=== PATIENT | male | born 1930 | race Caucasian/White ===

== ENCOUNTER 2016-07-21 04:24 | Inpatient (IN) | payer OTHER ==
[2016-07-21] MEDS ORDERED: OCTREOTIDE ACETATE 50 MCG/1 ML - 1 ML VIAL IVPUSH ONE (04:26)
[2016-07-21] MEDS ORDERED: PANTOPRAZOLE SODIUM 40 MG in SODIUM CHLORIDE 100 ML IVPB ONE ×2 (04:27→04:30)
[2016-07-21] MEDS ORDERED: OCTREOTIDE ACETATE 1,200 MCG in DEXTROSE 5%-WATER - 488 ML IVPB SCH (04:30)
[2016-07-21] MEDS ORDERED: TRANEXAMIC ACID 1000 MG/10 ML VIAL IVPUSH ONE (04:32)
[2016-07-21] MEDS ORDERED: PANTOPRAZOLE SODIUM 40 MG VIAL ONE (04:34)
[2016-07-21] MEDS ORDERED: PANTOPRAZOLE SODIUM 100 ML IVPB ONE (04:34)
[2016-07-21] MEDS ORDERED: OCTREOTIDE ACETATE 100 MCG/1 ML ONE (04:36)
--- NOTE | 2016-07-21 04:40 | PDOC ---
History of Present Illness <Josep Lucio - Last Filed: 07/21/16 06:25> - General History Source: Patient Exam Limitations: No Limitations - History of Present Illness Initial Comments: 07/21/16 05:25 The patient is an 86-year-old male, with a significant past medical history of colon cancer and is currently being treated for leukemia, who presents to ED with GI bleed today. Pt was recently discharged from [facility] where he was given five units PRBC. Daughter was called by pts because pt was noted have bright blood per rectum and coffee ground emesis by mouth. Pt was also noted to be very lethargic. <Yokasta Beth - Last Filed: 07/21/16 06:41> - General Stated Complaint: BLEEDING Time Seen by Provider: 07/21/16 04:26 Past History <Josep Lucio - Last Filed: 07/21/16 06:25> <Yokasta Beth - Last Filed: 07/21/16 06:41> - Past Medical History Allergies/Adverse Reactions: Allergies Allergy/AdvReac Type Severity Reaction Status Date / Time No Known Allergies Allergy Verified 07/21/16 04:48 Review of Systems - Review of Systems Able to Perform ROS?: Yes Comments:: 07/21/16 05:31 GENERAL/CONSTITUTIONAL: No fever or chills. (+)weakness HEAD, EYES, EARS, NOSE AND THROAT: No change in vision. No ear pain or discharge. No sore throat. CARDIOVASCULAR: No chest pain or shortness of breath. RESPIRATORY: No cough, wheezing, or hemoptysis. GASTROINTESTINAL: No nausea, diarrhea or constipation. (+)Vomiting coffee grounds GENITOURINARY: No dysuria, frequency, or change in urination. (+)Bright red blood per rectum MUSCULOSKELETAL: No joint or muscle swelling or pain. No neck or back pain. SKIN: No rash NEUROLOGIC: No headache, vertigo, loss of consciousness, or change in strength/ sensation. ENDOCRINE: No increased thirst. No abnormal weight change. HEMATOLOGIC/LYMPHATIC: No anemia, easy bleeding, or history of blood clots. ALLERGIC/IMMUNOLOGIC: No hives or skin allergy. <Yokasta Beth - Last Filed: 07/21/16 06:41> *Physical Exam - Vital Signs Last Vital Signs Temp Pulse Resp BP Pulse Ox 98.6 F 87 20 107/55 96 07/21/16 05:14 07/21/16 05:14 07/21/16 05:14 07/21/16 05:14 07/21/16 05:14 - Physical Exam Comments: 07/21/16 05:46 GENERAL: pale and cachetic HEAD: No signs of trauma EYES: PERRLA, EOMI, sclera anicteric, conjunctiva clear ENT: Auricles normal inspection, hearing grossly normal, nares patent. (+) Coffee ground emesis was noted at mouth. exudates. Moist mucosa. NECK: Normal ROM, supple, no lymphadenopathy, JVD, or masses LUNGS: Breath sounds equal, clear to auscultation bilaterally. No wheezes, and no crackles HEART: Regular rate and rhythm, normal S1 and S2, no murmurs, rubs or gallops ABDOMEN: Soft. No guarding, no rebound. No masses. (+)Linear right upper quadrant incision was noted, well healed. Severe amount of melanonic stool and dark red blood noted. EXTREMITIES: Normal range of motion, no edema. No clubbing or cyanosis. No cords, erythema, or tenderness NEUROLOGICAL: Cranial nerves II through XII grossly intact. SKIN: Warm, Dry, normal turgor, no rashes or lesions noted <Yokasta Beth - Last Filed: 07/21/16 06:41> ED Treatment Course - LABORATORY CBC & Chemistry Diagram: 07/21/16 04:27 07/21/16 04:27 <Josep Lucio - Last Filed: 07/21/16 06:25> - LABORATORY CBC & Chemistry Diagram: 07/21/16 04:27 07/21/16 04:27 - ADDITIONAL ORDERS Additional order review: Laboratory Results 07/21/16 07/21/16 07/21/16 04:29 04:27 04:27 Sodium 140 Potassium 4.3 Chloride 99 Carbon Dioxide 18 L Anion Gap 23 H BUN 77 H Creatinine 3.3 H Creat Clearance w eGFR 17.95 Random Glucose 304 H* Lactic Acid 15.947 H* Calcium 7.1 L Phosphorus 5.4 H Magnesium 2.3 Total Bilirubin 0.8 AST 32 ALT 16 Alkaline Phosphatase 212 H Creatine Kinase Troponin I Total Protein 3.5 L Albumin 1.6 L Lipase 267 Blood Type A POSITIVE Crossmatch See Detail 07/21/16 04:27 Sodium Potassium Chloride Carbon Dioxide Anion Gap BUN Creatinine Creat Clearance w eGFR Random Glucose Lactic Acid Calcium Phosphorus Magnesium Total Bilirubin AST ALT Alkaline Phosphatase Creatine Kinase 30 L Troponin I 0.03 Total Protein Albumin Lipase Blood Type Crossmatch 07/21/16 04:27 RBC 1.55 L MCV 94.6 MCHC 28.6 L RDW 16.6 H MPV 9.7 Neutrophils % Y Lymphocytes % Y - Medications Given in the ED: ED Medications Discontinued Medications Generic Name Dose Route Start Last Admin Trade Name Aury PRN Reason Stop Dose Admin Desmopressin Acetate 100 mcg 07/21/16 04:58 07/21/16 05:16 Ddavp Injection - IVPB 07/21/16 04:59 Not Given ONCE ONE Desmopressin Acetate 21 mcg 07/21/16 05:17 07/21/16 05:18 Ddavp Injection - IVPB 07/21/16 05:18 21 mcg NOW ONE Administration Pantoprazole Sodium 40 mg/ 100 mls @ 200 mls/hr 07/21/16 04:27 07/21/16 04:45 Sodium Chloride IVPB 07/21/16 04:56 200 mls/hr ONCE ONE Administration Pantoprazole Sodium 40 mg/ 100 mls @ 200 mls/hr 07/21/16 04:30 07/21/16 04:30 Sodium Chloride IVPB 07/21/16 04:59 200 mls/hr NOW ONE Administration Octreotide Acetate 50 mcg 07/21/16 04:26 07/21/16 04:46 Sandostatin - IVPUSH 07/21/16 04:27 50 mcg ONCE ONE Administration Tranexamic Acid 700 mg 07/21/16 04:32 07/21/16 05:00 Tranexamic Acid - IVPUSH 07/21/16 04:33 700 mg ONCE ONE Administration <Yokasta Beth - Last Filed: 07/21/16 06:41> Medical Decision Making - Critical Care Time Total Critical Care Time (minutes): 60 Critical Care Statement: The care of this patient involved high complexity decision making to prevent further life threatening deterioration of the patient 's condition and/or to evalute & treat vital organ system(s) failure or risk of failure. - Medical Decision Making 07/21/16 04:59 This is an 86yo m with acute upper and lower GI bleed with underlying CML and recently discharged from [facility] where he was given five units PRBC. He has no tachycardia who has hypotension. He looks very pale and weak. The daughter , whom is a physician, indicates the patient is to be DNR/DNI. I am very concerned regarding upper GI bleed but also potentially lower GI bleed given the daughter informing she noted bright red blood per rectum, and a significant volume. He has been given octreotide, desmopresson, protonix, transfuse 3U PRBC 's and 2-3U Platelets as well; I have endorsed the patient to ICU SECURITIES ANALYST Madi and have discussed the case with GI avionics repair technician who agrees with plan at this time and will evaluate the patient once the platelets have increased as he indicates not possible to scope with the thrombocytopenia noted. I have kept the daughter involved in the decision making process. He remains hemodynamically stable at this time. Analgesia prn with low dose morphine and antiemetics with ondansetron. 07/21/16 06:25 Pt required CVC and one TLC was placed in the RIGHT femoral; the patient is given antibiotics as well; endorsed to Dr. Brown for further management. Very poor prognosis; communicated to the daughter. Total Critical Care Time: 60 minutes <Josep Lucio - Last Filed: 07/21/16 06:25> *DC/Admit/Observation/Transfer - Attestations Physician Attestion: 07/21/16 06:28 I, Dr. Josep Lucio MD, attest that this document has been prepared under my direction and personally reviewed by me in its entirety. I further attest, that it accurately reflects all work, treatment, procedures and medical decision -making performed by me. <Josep Lucio - Last Filed: 07/21/16 06:25> - Attestations Scribe Attestion: 07/21/16 05:46 Documentation prepared by Yokasta Beth, acting as medical records supervisor for Josep Lucio MD. <Yokasta Beth - Last Filed: 07/21/16 06:41> Diagnosis at time of Disposition: Thrombocytopenia GI bleeding Qualifiers: GI bleed type/associated pathology: unspecified gastrointestinal hemorrhage type Qualified Code(s): K92.2 - Gastrointestinal hemorrhage, unspecified Hypotension Qualifiers: Hypotension type: other hypotension type Qualified Code(s): I95.89 - Other hypotension Anemia Qualifiers: Folate deficiency anemia type: unspecified folate deficiency - Referrals
[2016-07-21 04:44] LABS: MCHC 28.6 g/dl (32.0-35.9); MEAN CELL VOLUME 94.6 fl (80-96); MEAN PLT VOLUME 9.7 fl (7.5-11.1); RDW 16.6 % (11.9-15.9)
[2016-07-21 04:48] LABS: WHITE BLOOD COUNT 102.5 K/mm3 (4.0-10.0)
[2016-07-21 04:49] LABS: PLATELET COUNT 34 K/MM3 (134-434)
[2016-07-21] MEDS ORDERED: DESMOPRESSIN ACETATE 4 MCG/ML AMP IVPB ONE ×2 (04:58→05:17)
[2016-07-21] MEDS ORDERED: morphine CARPU-JECT 4 MG/1 ML DISP.SYRIN IVPUSH ONE ×3 (05:05→23:56)
[2016-07-21] MEDS ORDERED: ONDANSETRON 4 MG/2 ML VIAL IVPUSH ONE (05:05)
[2016-07-21 05:11] LABS: ALBUMIN 1.6 g/dl (3.4-5.0); BILIRUBIN,TOTAL 0.8 mg/dL (0.2-1.0); CALCIUM 7.1 mg/dL (8.5-10.1); CREATININE 3.3 mg/dL (0.7-1.3); MAGNESIUM 2.3 mg/dL (1.8-2.4); PHOSPHOROUS 5.4 mg/dL (2.5-4.9); TOT PROT 3.5 g/dl (6.4-8.2)
[2016-07-21 05:22] LABS: TROPONIN I 0.03 ng/ml (0.00-0.05)
[2016-07-21 06:08] LABS: INR 1.82 (0.82-1.09); PROTHROMBIN TIME (PATIENT) 20.3 SEC (9.98-11.88)
--- NOTE | 2016-07-21 07:25 | PN ---
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 PAtient's daughter at bedside and is the surrogate. patient made DNR. Case d/w ICU wire threader and fentanyl started for pain medication. will continue orders from ED, IVF, PRBCs, FFP and Platelets. Endorsed to day team for continued care. Visit type - Emergency Visit Emergency Visit: Yes ED Registration Date: 07/21/16 Care time: The patient presented to the Emergency Department on the above date and was hospitalized for further evaluation of their emergent condition. - New Patient This patient is new to me today: No - Critical Care Critical Care patient: Yes Total Critical Care Time (in minutes): 15
[2016-07-21] MEDS ORDERED: SODIUM CHLORIDE 1,000 ML IV SCH (07:30)
[2016-07-21] MEDS ORDERED: CALCIUM GLUCONATE 10% - 1,000 MG/10 ML VIAL ONE (07:34)
[2016-07-21] MEDS ORDERED: SODIUM CHLORIDE 500 ML IV STA (07:35)
[2016-07-21] MEDS ORDERED: morphine CARPU-JECT 2 MG/1 ML DISP.SYRIN IVPUSH PRN (07:35)
[2016-07-21 07:42] VITALS: BMI 26.4
--- NOTE | 2016-07-21 08:00 | PN ---
Teaching Attending Note Name of Resident: Pao Manning ATTENDING PHYSICIAN STATEMENT I saw and evaluated the patient. I reviewed the resident's note and discussed the case with the resident. I agree with the resident's findings and plan as documented. SUBJECTIVE: Unable to take hx from t as he is hard of hearing and sick. 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 He was admitted with worsening anemia to OSH and discharged yesterday. he took his nifedipine yesterday, his lasix and metolazone were increased at dc . yesterday he had upper and Lower GI bleed. he was recently treated for PNA . in ER he was given RBC, plt and FFPs. he is now in ICU OBJECTIVE: Mild distress, pale , looks ill. dry MM , dry blood on lips. round pupils , reactive to light. no jVD Lung s: CTAB CV: RRR,no MRG Abd :soft, slightly distended , TTP in all guadrants, no guarding . Ext : 1+ pitting edema on LE . 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 pt is now hemodinamically stable. - start PPI gtt - currently on octriotide gtt . - give 500 cc of NS bolus , start NS then at 125 - transfuse blood - give one dose of meropenem now . - daughter declined CT scan of abd - daughter decliend central line - for pain , fentanyl ordered due to his renal failure 2- Hypotension : will perform fluid resuscitation . if needed can start dopamine peripherally . daughter decliend central line 3- CMML , with likely conversion to AML . was scheduled to start chemo tomorrow - transfuse blood and plt 4- Goals of care . d/w daughter , who is a doctor , in details . she understands he rfather is very sick and might not make it . she does not want heroic measures , and no CT scan , she wasnts him comfortable , treated with pain meds and flluid and blood resuscitation . She understands that pain meds can drop blood pressure . wants mom to get here , before she makes further decisions about him. she even does not want repeat blood work DNr/DNI will have another family meeting when mom comes here
[2016-07-21] MEDS ORDERED: ONDANSETRON 4 MG/2 ML VIAL ONE (08:27)
[2016-07-21] MEDS ORDERED: LORAZEPAM CARPU-JECT 2 MG/ML DISP.SYRIN IVPUSH ONE ×2 (08:30→22:04)
[2016-07-21 08:33] LABS: METAMYELOCYTE 9 % (0-2)
[2016-07-21 08:34] LABS: SMUDGE CELLS FEW
[2016-07-21 08:35] LABS: ANISOCYTOSIS 1+; HYPOCHROMIA 1+; PLATELET COMMENT2 NO CLOTTING DETECTED; PLATELET COMMENT3 FEW GIANT PLTS; PLATELET ESTIMATE MARKEDLY DECREASED (NORMAL); POLYCHROMASIA 1+
--- NOTE | 2016-07-21 08:46 | HP ---
CHIEF COMPLAINT: rectal bleed HISTORY OF PRESENT ILLNESS: history obtained from daughter who is power of finance attorney This is an 86 yo M with PMH of CMML, R inguinal hernia and colon cancer s/p recection 2001, who was brought to ED by family due to 2 episodes of upper and lower GI bleed. He was recently at [facility] 07/17 07/19 due to PNA. Aty that time he was diagnosed with large R inguinal hernia, not treated. He had 5 recent transfusions. Per daughter, he has been bruising easily for the past 2 mo. This morning he had large episodes of melena and diffuse abdominal pain. This has not happened before. He has no hx of CHF or VA. On admission he was hypotensive , pancytopenic and severely anemic. He was transfused 1 u p RBCs. Patient was admitted to ICU and given fentanyl for abdominal pain. R groin central line placed in ED infiltrated but wanted conservative measures/comfort care and declined new line. They agree to BP support with IVF and to transfusion of blood products but decline heroic measures (no central line, no surgery, they signed DNR DNI) Discussed with daughter and . They may decide to place patient on morphine drip once another daughter arrives at hospital. After 3 U pRBC and IVF, patient aao to time, place, self. ER course was notable for: (1)labs (2)R inguinal central line (3)transfusion Recent Travel: denies PAST MEDICAL HISTORY: as above PAST SURGICAL HISTORY: as above Social History: lives at home Smoking: denies Alcohol:denies Drugs: denies Family History: HTN, HLD Allergies No Known Allergies Allergy (Verified 07/21/16 04:48) HOME MEDICATIONS: REVIEW OF SYSTEMS CONSTITUTIONAL: Absent: fever, chills HEENT: Absent: rhinorrhea, nasal congestion, throat pain CARDIOVASCULAR: Absent: chest pain, syncope, palpitations RESPIRATORY: Absent: cough GASTROINTESTINAL: Absent: vomiting, diarrhea GENITOURINARY: Absent: dysuria HEMATOLOGIC/IMMUNOLOGIC: Absent: frequent infections NEUROLOGIC: Absent: headache, focal weakness or paresthesias PSYCHIATRIC: Absent: hallucinations. PHYSICAL EXAMINATION Vital Signs - 24 hr 07/21/16 07/21/16 07/21/16 07:30 07:42 08:35 Temperature 96.6 F L Pulse Rate 90 79 Respiratory 20 Rate Blood Pressure 94/48 O2 Sat by Pulse 94 L 99 Oximetry (%) 03/25/17 08:44 Temperature Pulse Rate Respiratory 81 H Rate Blood Pressure 91/44 O2 Sat by Pulse Oximetry (%) GENERAL: Awake, alert, and oriented, in moderate distress HEAD: Normal with no signs of trauma. Pale EYES: Pupils equal, round and reactive to light, extraocular movements intact, sclera anicteric, pale conjunctiva EARS, NOSE, THROAT: dry mucous membranes. NECK: supple LUNGS: Breath sounds equal, clear to auscultation bilaterally. HEART: Regular rate and rhythm ABDOMEN: soft, diffusely tender, no mass, absent bowel sounds MUSCULOSKELETAL: No CVA tenderness. UPPER EXTREMITIES: cool pale 1+ pulses, No peripheral edema. LOWER EXTREMITIES: cool pale 1+ pulses, No peripheral edema. NEUROLOGICAL: Cranial nerves II-XII grossly intact. PSYCHIATRIC: in distress, mildly lethargic SKIN: cool, dry, pale ASSESSMENT/PLAN: This is an 86 yo M with PMH of CMML, R inguinal hernia and colon cancer s/p recection 2001, who was brought to ED by family due to 2 episodes of upper and lower GI bleed. 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 -possible dopamine drip if MAP drops further before second sister arrives. End of life care -DNR DNI -comfort measures -awaiting another family member to arrive -consider morphine drip once everyone is present -recording clerk care consult -discussed with patient daughter and mother FEN NS @ 100, boluses replete lytes npo Dispo ICU Problem List - Problem (1) Anemia Code(s): D64.9 - ANEMIA, UNSPECIFIED Qualifiers: Folate deficiency anemia type: unspecified folate deficiency (2) GI bleeding Code(s): K92.2 - GASTROINTESTINAL HEMORRHAGE, UNSPECIFIED Qualifiers: GI bleed type/associated pathology: unspecified gastrointestinal hemorrhage type Qualified Code(s): K92.2 - Gastrointestinal hemorrhage, unspecified (3) Hypotension Code(s): I95.9 - HYPOTENSION, UNSPECIFIED Qualifiers: Hypotension type: other hypotension type Qualified Code(s): I95.89 - Other hypotension (4) Thrombocytopenia Code(s): D69.6 - THROMBOCYTOPENIA, UNSPECIFIED (5) Ischemia, bowel Code(s): K55.9 - VASCULAR DISORDER OF INTESTINE, UNSPECIFIED Visit type - Emergency Visit Emergency Visit: Yes ED Registration Date: 07/21/16 Care time: The patient presented to the Emergency Department on the above date and was hospitalized for further evaluation of their emergent condition. - New Patient This patient is new to me today: Yes Date on this admission: 07/21/16 - Critical Care Critical Care patient: Yes Total Critical Care Time (in minutes): 45 Critical Care Statement: The care of this patient involved high complexity decision making to prevent further life threatening deterioration of the patient 's condition and/or to evalute & treat vital organ system(s) failure or risk of failure.
[2016-07-21] MEDS: PANTOPRAZOLE SODIUM 80 MG in SODIUM CHLORIDE 100 ML IVPB SCH ×2 (08:59→19:00)
[2016-07-21] MEDS ORDERED: MUPIROCIN 2% TOPICAL OINTMENT FOR DECOLONIZATION NS SCH (10:00)
[2016-07-21] MEDS ORDERED: CEFTRIAXONE 50 ML IVPB SCH (10:30)
[2016-07-21] MEDS ORDERED: MEROPENEM 500 MG VIAL (RESTRICTED TO ID) IVPB ONE (10:37)
--- NOTE | 2016-07-21 10:57 | CONSULT ---
Consult - text type - Consultation Consultation Note: PULM/CCM Pt seen and examined in ICU CC: hematemesis, melena, weakness HPI: 86 y/o man with long hx CML, poorly responsive to chemotherapy recently D/ c from [facility] after GIB. Required multiple transfusion prior to d/c. Yesterday developed hematemesis x 2 and multiple episodes of maroon blood. Very weak and lethagic at home prompting ER visit. In ED pt normotensive, afebrile, with large volume melena. Hgb 4, Lactate 15, Cr 3, wbc 100K. Urgent tlc placed in R femoral, attempted transfusion--infiltrated, no blood return. Started on Protonix and Octreotide gtt. Transfusions ordered and pt brought to ICU. GOC discussion had, pt made DNR/DNI by daughter (physician). Fentanyl given for abd pain. Family does not want aggressive measure, TLC not replaced. Active Medications Chlorhexidine Gluconate (Hibiclens For Decolonization -) 1 applic TP HS [facility] Fentanyl (Sublimaze Injection -) 50 mcg IVPUSH Q1H PRN PRN Reason: PAIN Stop: 07/22/16 07:02 Last Admin: 07/21/16 09:00 Dose: 50 mcg Octreotide Acetate 1,200 mcg/ (Dextrose) 500 mls @ 20.83 mls/hr IVPB ASDIR YAIMA PRN Reason: 50 MCG/HR Last Admin: 07/21/16 06:16 Dose: 20.83 mls/hr Pantoprazole Sodium 80 mg/ (Sodium Chloride) 100 mls @ 10 mls/hr IVPB Q10H YAIMA PRN Reason: 8 MG/HR Last Admin: 07/21/16 08:59 Dose: Not Given Sodium Chloride (Normal Saline -) 1,000 mls @ 125 mls/hr IV ASDIR YAIMA Ceftriaxone Sodium (Rocephin 1gm Ivpb (Pre-Docked)) 50 mls @ 100 mls/hr IVPB DAILY YAIMA Meropenem (Merrem (Restricted To Id) -) 500 mg IVPB ONCE ONE Stop: 07/21/16 10:38 Morphine Sulfate (Morphine Injection -) 1 mg IVPUSH Q3H PRN PRN Reason: PAIN Mupirocin (Bactroban Ointment (For Decolonization) -) 1 applic NS BID [facility] Stop: 07/26/16 09:59 PMH: HTN, CML PSH: unk Family Hx: Non contrib Social: live with daughter, no toxic habits CBC, BMP 07/21/16 04:27 07/21/16 04:27 Vital Signs Temp 96.6 F L 07/21/16 07:30 Pulse 79 07/21/16 08:35 Resp 81 H 07/21/16 08:44 BP 91/44 07/21/16 08:44 Pulse Ox 99 07/21/16 08:35 Intake & Output 07/20/16 07/20/16 07/21/16 11:59 23:59 11:59 Weight 74.446 kg Other: Height 5 ft 6 in Body Mass Index (BMI) 26.4 Weight Measurement [facility] Measurement Method Est/Stated by Patient PE: HEENT; PERRL, EOMI PULM: clear CV: tachy, regular, no m/r/g ABD: diffusely tender, mjldly distended, hypoactive BS EXT; cool, weak peripheral pulses Neuro: intact, follows simple commands EKG: SR, ST depressions in A/ 86 yo with advanced CML, possible converted to AML with recurrent GIB now with same, severe anemia and lactic acidosis. Family desires non-aggressive care and focus on comfort -cont volume resusitation with blood products -serial CBC -ceftriaxone for possible translocation from ischemic bowel -cont nexium gtt, unlikely varices, possible ischemic bowels so would d/c octreotide -fentanyl for comfort, gtt if moribund -ice chips if desires for comfort -monitor in ICU Madi Ramon ACNP [id number] 35min CCT
[2016-07-21] MEDS ORDERED: MEROPENEM 500 MG in DEXTROSE 5%-WATER - 100 ML IVPB ONE (11:00)
--- NOTE | 2016-07-21 11:49 | CON.GI ---
Consult Consult Specialty:: gastroenterology Referred by:: hospitalist Reason for Consultation:: gi bleeding - History of Present Illness History of Present Illness: Patient seen in the ICU. The information was obtained form her daughter. 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 This morning he had large episodes of melena and diffuse abdominal pain. In the ER, he was noted to be hypotensive, pancytopenic and had severe anemia. He was given blood products emergently. - History Source History Provided By: Family Member - Alcohol/Substance Use Hx Alcohol Use: No - Smoking History Smoking history: Never smoked Have you smoked in the past 12 months: No Home Medications - Allergies Allergies/Adverse Reactions: Allergies Allergy/AdvReac Type Severity Reaction Status Date / Time No Known Allergies Allergy Verified 07/21/16 04:48 Review of Systems Unable to obtain ROS, reason: clinical condition Physical Exam-GI Vital Signs: Vital Signs Temperature 96.6 F L 07/21/16 07:30 Pulse Rate 79 07/21/16 08:35 Respiratory Rate 81 H 07/21/16 08:44 Blood Pressure 91/44 07/21/16 08:44 O2 Sat by Pulse Oximetry (%) 99 07/21/16 08:35 Constitutional: Yes: Well Nourished Eyes: Yes: Conjunctiva Clear HENT: Yes: Atraumatic Neck: Yes: Supple Cardiovascular: Yes: Regular Rate and Rhythm Respiratory: Yes: CTA Bilaterally Gastrointestinal Inspection: No: Distention ...Palpate: Yes: Soft, Tenderness (--diffuse). No: Firm/Rigid, Guarding, Hepatomegaly, Mass, Splenomegaly Labs: INR, PTT INR 1.82 (0.82-1.09) H 07/21/16 04:27 CBC,CMP WBC 102.5 K/mm3 (4.0-10.0) H* 07/21/16 04:27 RBC 1.55 M/mm3 (4.00-5.60) L 07/21/16 04:27 Hgb 4.2 GM/dL (11.7-16.9) L* 07/21/16 04:27 Hct 14.7 % (35.4-49) L 07/21/16 04:27 MCV 94.6 fl (80-96) 07/21/16 04:27 MCHC 28.6 g/dl (32.0-35.9) L 07/21/16 04:27 RDW 16.6 % (11.9-15.9) H 07/21/16 04:27 Plt Count 34 K/MM3 (134-434) L* 07/21/16 04:27 MPV 9.7 fl (7.5-11.1) 07/21/16 04:27 Neutrophils % 65.0 % (42.8-82.8) 07/21/16 04:27 Lymphocytes % 13.0 % (8-40) 07/21/16 04:27 Monocytes % 5.0 % (3.8-10.2) 07/21/16 04:27 Eosinophils % 2.0 % (0-4.5) 07/21/16 04:27 Band Neutrophils 9.0 % (0-10) 07/21/16 04:27 Metamyelocytes 9 % (0-2) H 07/21/16 04:27 Myelocytes 2 % (0-2) 07/21/16 04:27 Promyelocytes 3 (0-1) H 07/21/16 04:27 Smudge Cells Few 07/21/16 04:27 Other Cell Type 1 07/21/16 04:27 Platelet Estimate Markedly decreased (NORMAL) 07/21/16 04:27 Platelet Comment No clumping noted 07/21/16 04:27 Platelet Comment No clotting detected 07/21/16 04:27 Polychromasia 1+ 07/21/16 04:27 Hypochromic-Microcytic 1+ 07/21/16 04:27 Anisocytosis 1+ 07/21/16 04:27 Sodium 140 mmol/L (136-145) 07/21/16 04:27 Potassium 4.3 mmol/L (3.5-5.1) 07/21/16 04:27 Chloride 99 mmol/L (98-107) 07/21/16 04:27 Carbon Dioxide 18 mmol/L (21-32) L 07/21/16 04:27 Anion Gap 23 (8-16) H 07/21/16 04:27 BUN 77 mg/dL (7-18) H 07/21/16 04:27 Creatinine 3.3 mg/dL (0.7-1.3) H 07/21/16 04:27 Creat Clearance w eGFR 17.95 (>60) 07/21/16 04:27 Random Glucose 304 mg/dL (74-106) H* 07/21/16 04:27 Lactic Acid 15.947 mmol/L (0.4-2.0) H* 07/21/16 04:27 Calcium 7.1 mg/dL (8.5-10.1) L 07/21/16 04:27 Phosphorus 5.4 mg/dL (2.5-4.9) H 07/21/16 04:27 Magnesium 2.3 mg/dL (1.8-2.4) 07/21/16 04:27 Total Bilirubin 0.8 mg/dL (0.2-1.0) 07/21/16 04:27 AST 32 U/L (15-37) 07/21/16 04:27 ALT 16 U/L (12-78) 07/21/16 04:27 Alkaline Phosphatase 212 U/L (45-117) H 07/21/16 04:27 Creatine Kinase 30 IU/L (39-308) L 07/21/16 04:27 Troponin I 0.03 ng/ml (0.00-0.05) 07/21/16 04:27 Total Protein 3.5 g/dl (6.4-8.2) L 07/21/16 04:27 Albumin 1.6 g/dl (3.4-5.0) L 07/21/16 04:27 Lipase 267 U/L (73-393) 07/21/16 04:27 Problem List - Problems (1) GI bleeding Assessment/Plan: r/o peptic ulcer disease R> continue supportive care as clinical out cone is poor due to underlying AML on top of a underlying CMML continue IV Protonix d/c octreotide drip CC 40 min Code(s): K92.2 - GASTROINTESTINAL HEMORRHAGE, UNSPECIFIED Qualifiers: GI bleed type/associated pathology: unspecified gastrointestinal hemorrhage type Qualified Code(s): K92.2 - Gastrointestinal hemorrhage, unspecified
[2016-07-21 12:37] LABS: MCH 27.9 pg (25.7-33.7); MCHC 31.4 g/dl (32.0-35.9); MEAN CELL VOLUME 88.8 fl (80-96); PLATELET COUNT 63 K/MM3 (134-434); RDW 14.6 % (11.9-15.9)
[2016-07-21 12:46] LABS: WHITE BLOOD COUNT 125.5 K/mm3 (4.0-10.0)
[2016-07-21 13:08] LABS: TROPONIN I 0.03 ng/ml (0.00-0.05)
[2016-07-21] MEDS ORDERED: MAG HYDROX/AL HYDROX/SIMETH 30 ML UNIT-DOSE CUP PO PRN (15:51)
[2016-07-21 17:05] LABS: MCH 27.4 pg (25.7-33.7); MCHC 30.8 g/dl (32.0-35.9); MEAN PLT VOLUME 9.2 fl (7.5-11.1); PLATELET COUNT 72 K/MM3 (134-434); RDW 14.4 % (11.9-15.9)
[2016-07-21 17:19] LABS: WHITE BLOOD COUNT 125.5 K/mm3 (4.0-10.0)
[2016-07-21 17:37] LABS: ANISOCYTOSIS 1+; HYPOCHROMIA 1+; METAMYELOCYTE 6 % (0-2); MICROCYTOSIS 1+; PLATELET ESTIMATE DECREASED (NORMAL); POLYCHROMASIA FEW
--- NOTE | 2016-07-21 18:24 | EKG ---
Test Reason : Blood Pressure : / mmHG Vent. Rate : 089 BPM Atrial Rate : 089 BPM P-R Int : 158 ms QRS Dur : 074 ms QT Int : 398 ms P-R-T Axes : 049 033 048 degrees QTc Int : 484 ms SINUS RHYTHM WITH PREMATURE ATRIAL COMPLEXES AND PREMATURE VENTRICULAR COMPLEXES OR FUSION COMPLEXES LOW VOLTAGE QRS ABNORMAL ECG NO PREVIOUS ECGS AVAILABLE Confirmed by BARBARA CHURCHILL MD ([id number]) on 07/21/2016 6:23:51 PM Referred By: Confirmed By:BARBARA CHURCHILL MD
[2016-07-21 21:51] LABS: MCH 27.5 pg (25.7-33.7); MCHC 30.2 g/dl (32.0-35.9); MEAN CELL VOLUME 90.8 fl (80-96); MEAN PLT VOLUME 9.4 fl (7.5-11.1); PLATELET COUNT 74 K/MM3 (134-434); RDW 15.2 % (11.9-15.9)
[2016-07-21 21:59] LABS: WHITE BLOOD COUNT 134.7 K/mm3 (4.0-10.0)
[2016-07-21] MEDS ORDERED: CHLORHEXIDINE GLUCONATE 4% CLEANSER FOR DECOLONIZATION TP SCH (22:00)
[2016-07-21] MEDS ORDERED: LORAZEPAM CARPU-JECT 2 MG/ML DISP.SYRIN ONE (22:04)
[2016-07-21 22:38] LABS: ANISOCYTOSIS 1+; HYPOCHROMIA 1+; METAMYELOCYTE 5 % (0-2); PLATELET ESTIMATE DECREASED (NORMAL)
[2016-07-21 22:39] LABS: DOHLE BODIES 1+; MICROCYTOSIS 1+
[2016-07-21] MEDS ORDERED: MORPHINE 100 MG in SODIUM CHLORIDE 98 ML IVPB SCH (23:45)
[2016-07-21] MEDS ORDERED: morphine CARPU-JECT 4 MG/1 ML DISP.SYRIN ONE (23:46)
[2016-07-21] MEDS ORDERED: LORAZEPAM CARPU-JECT 2 MG/ML DISP.SYRIN IVPUSH PRN (23:57)
[2016-07-22 00:13] VITALS: TEMP 96.8
--- NOTE | 2016-07-22 03:26 | HOSP ---
Subjective - Review of Symptoms Events since last encounter: Was informed by the RN that patient has been on IV Morphine drip since 29 as per daughter's request and now the patient had a flat line in the monitor. Went to examine the patient in ICU bed 11. Nurse mentioned that patient had been combative, restless, agitated, complaining of pain in the abdomen. Hence, Morphine drip was started around 0030 as per families request. and daughter were present at bed side. Daughter who is a physician requested for morphine drip and to continue with comfort care only. On assessment, there was no spontaneous breathing, no palpable pulses, no gag reflex and pupils were fixed and dilated. Flat line recorded in the monitor. pronounced at 3:20am. Family at bed side. Organ donation to be notified by RN. Physical Examination Vital Signs: Vital Signs Temperature 96.8 F L 07/21/16 22:00 Pulse Rate 93 H 07/22/16 00:00 Respiratory Rate 22 07/22/16 00:00 Blood Pressure 100/41 07/22/16 00:00 O2 Sat by Pulse Oximetry (%) 99 07/21/16 21:00 Labs: CBC, BMP 07/21/16 21:25 Visit type - Emergency Visit Emergency Visit: Yes ED Registration Date: 07/21/16 Care time: The patient presented to the Emergency Department on the above date and was hospitalized for further evaluation of their emergent condition. - New Patient This patient is new to me today: Yes Date on this admission: 07/22/16 - Critical Care Critical Care patient: No
[2016-07-22 03:46] VITALS: BP 68/38; PULSE 112
--- NOTE | 2016-07-23 15:38 | DS ---
Physical Exam: SUBJECTIVE: Patient seen and examined No spontaneous breathing, no palpable pulses, no gag reflex and pupils were fixed and dilated. Flat line recorded in the monitor. pronounced at 3:20am. Family at bed side. Organ donation to be notified by RN. OBJECTIVE: PHYSICAL EXAM GENERAL: unresponsive HEAD: Normal with no signs of trauma. EYES: dilated pupils fixed ENT: dry mucous membranes. NECK: supple. LUNGS: no breath sounds HEART: no heart sounds ABDOMEN: no bowel sounds EXTREMITIES: no pulses, cool , pale NEUROLOGICAL: no response PSYCH: unresponsive SKIN: cool, pale LABS HOSPITAL COURSE: Date of Admission:07/21/16 This is an 86 yo M with PMH of CMML, R inguinal hernia and colon cancer s/p recection 2001, who was brought to ED by family due to 2 episodes of upper and lower GI bleed. He was recently at [facility] 07/17 07/19 due to PNA. At that time he was diagnosed with large R inguinal hernia, not treated. He had 5 recent transfusions. Per daughter, he has been bruising easily for the past 2 mo. This morning he had large episodes of melena and diffuse abdominal pain. This has not happened before. He has no hx of CHF or [place]. On admission he was hypotensive , pancytopenic and severely anemic. He was transfused 1 u p RBCs. Patient was admitted to ICU and given fentanyl for abdominal pain. R groin central line placed in ED infiltrated but wanted conservative measures/comfort care and declined new line. They agree to BP support with IVF and to transfusion of blood products but decline heroic measures (no central line, no surgery, they signed DNR DNI) Discussed with daughter and . He was admitted to ICU with Lower GIB likely due to bowel ischemia in setting of anemia and thrombocytopenia. 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 Family chose comfort measures so he was transfused 3 u pRBC and 2 u platelets, given IVF and then placed on morphine drip. pronounced at 3:20am 07/23 Date of Discharge: 07/23/16 Minutes to complete discharge: 30 (na) Discharge Summary Reason For Visit: GI HEMORRHAGE Current Active Problems Anemia (Acute) GI bleeding (Acute) Hypotension (Acute) Ischemia, bowel (Acute) Thrombocytopenia (Acute) - Instructions Referrals: Matt Chand [Primary Care Provider] - Disposition: Problem List - Problems (1) Anemia Code(s): D64.9 - ANEMIA, UNSPECIFIED Qualifiers: Folate deficiency anemia type: unspecified folate deficiency (2) GI bleeding Code(s): K92.2 - GASTROINTESTINAL HEMORRHAGE, UNSPECIFIED Qualifiers: GI bleed type/associated pathology: unspecified gastrointestinal hemorrhage type Qualified Code(s): K92.2 - Gastrointestinal hemorrhage, unspecified (3) Hypotension Code(s): I95.9 - HYPOTENSION, UNSPECIFIED Qualifiers: Hypotension type: other hypotension type Qualified Code(s): I95.89 - Other hypotension (4) Thrombocytopenia Code(s): D69.6 - THROMBOCYTOPENIA, UNSPECIFIED (5) Ischemia, bowel Code(s): K55.9 - VASCULAR DISORDER OF INTESTINE, UNSPECIFIED This patient is new to me today: No Emergency Visit: Yes ED Registration Date: 07/21/16 Care time: The patient presented to the Emergency Department on the above date and was hospitalized for further evaluation of their emergent condition. Critical Care patient: Yes Total Critical Care Time (in minutes): 45 Critical Care Statement: The care of this patient involved high complexity decision making to prevent further life threatening deterioration of the patient 's condition and/or to evalute & treat vital organ system(s) failure or risk of failure. - Discharge Referral Referred to [facility] No
== END 2016-07-22 04:30 | disposition expired | DRG 393 ==
LOC: JER 04:24 → JERBED 05:44 → UNDOADMIN 06:09 → JERBED 06:09 → JICU 06:47
PROVIDERS: ADMIT Internal Medicine; ATTEND Internal Medicine
PROC: 30233R1 Transfusion of Nonautologous Platelets into Peripheral Vein, Percutaneous Approach (ICD-10-PCS; principal; 2016-07-21)
PROC: 30233N1 Transfusion of Nonautologous Red Blood Cells into Peripheral Vein, Percutaneous Approach (ICD-10-PCS; 2016-07-21)
PROC: 06HM33Z Insertion of Infusion Device into Right Femoral Vein, Percutaneous Approach (ICD-10-PCS; 2016-07-21)
DX: K55.9 Vascular disorder of intestine, unspecified (principal); A41.89 Other specified sepsis; R65.20 Severe sepsis without septic shock; K92.2 Gastrointestinal hemorrhage, unspecified; C92.Z0 Other myeloid leukemia not having achieved remission; E87.2 Acidosis; D62 Acute posthemorrhagic anemia; I95.89 Other hypotension; D64.89 Other specified anemias; D69.6 Thrombocytopenia, unspecified; I12.9 Hypertensive chronic kidney disease with stage 1 through stage 4 chronic kidney disease, or unspecified chronic kidney disease; N18.9 Chronic kidney disease, unspecified; K40.90 Unilateral inguinal hernia, without obstruction or gangrene, not specified as recurrent; Z66 Do not resuscitate; Z85.038 Personal history of other malignant neoplasm of large intestine
CPT/HCPCS: 36415; 36430; 80053; 82550; 83605; 83690; 83735; 84100; 84484; 85025; 85027; 85610; 86850; 86900; 86901; 86922; 93005; 93010; 99283-25; J2597; P9034; P9038; P9058